=== PATIENT | female | born 1965 | race Caucasian/White ===

== ENCOUNTER → 2018-09-21 | Outpatient (CLI) | payer OTHER | LOC: GMAL 14:46 | PROVIDERS: ATTEND Family Medicine | DX: R53.83 Other fatigue (principal); E55.9 Vitamin D deficiency, unspecified ==

== ENCOUNTER → 2018-11-26 | Outpatient (CLI) | payer OTHER ==
--- NOTE | 2018-11-27 17:55 | MAM ---
EXAM DESCRIPTION: Screening Mammogram,Bilateral: Digital Mammography CLINICAL HISTORY: 52 years Female SCREENING . No complaints. No personal or family history of breast cancer. Childbirth. Postmenopausal. Currently on HRT.. Possible biopsy not sure which breast. ALEX risk evaluation assessment: Lifetime risk is: 11.4. COMPARISON: Baseline study at this facility. No prior reports available.. TECHNIQUE: Bilateral CC and MLO projection full-field images, digital tomosynthesis mammographic technique. Bilateral digital 2-D full-field MLO images. CAD not available for tomosynthesis or 2-D images. FINDINGS: The breast parenchymal density pattern is: Heterogeneously dense breast tissue, which may obscure small masses. No skin thickening or nipple retraction. Bilateral vascular calcifications. Bilateral solitary microcalcifications. Large coarse rim calcified calcification in the 12:00 position of the middle third of the left breast may be secondary to prior fat necrosis. Focal asymmetry at the 12:30 clock position of the middle third of the left breast, approximately 6 cm from the nipple. May be associated with architectural distortion. Round intramammary lymph node or cyst in the middle third of the superior right breast. Bilateral axillary lymph nodes.. No new focal, stellate mass or density, focal asymmetry , and no suspicious microcalcifications right breast. IMPRESSION: BI-RADS CATEGORY: 0 - INCOMPLETE- Need additional imaging evaluation. FOLLOW-UP: Recall for additional imaging: Orthogonal full-field tomosynthesis of the left breast. Targeted left breast ultrasound of the region of interest.. Written communication concerning the IMPRESSION and Follow-up, will be mailed to the patient and referring health care provider. Electronically signed by: Rivera Vicente MD 11/27/2018 5:53 PM LAUNDRY SUPERVISOR
== END ==
LOC: MAMMO 14:40
PROVIDERS: ATTEND Family Medicine
DX: Z12.31 Encounter for screening mammogram for malignant neoplasm of breast (principal)

== ENCOUNTER → 2018-11-29 | Outpatient (CLI) | payer OTHER ==
--- NOTE | 2018-11-30 07:57 | US ---
EXAM DESCRIPTION: Breast,Left: Ultrasound CLINICAL HISTORY: 52 yearsFemaleABNORMAL MAMMO. Patient has had bilateral facet injections in the breasts. Scheduled for mammoplasty next week. COMPARISON: Digital screening tomosynthesis bilateral breasts 11/26/2018. Patient did not have diagnostic mammography today. TECHNIQUE: Transcutaneous scanning of the left breast utilizing foster-scale and Doppler modes. Scanning performed by the lead rider and Dr. Vicente. FINDINGS: Scanning of the upper left breast. Mixed fibroglandular and fatty echotextures. A calcified mass with anterior echogenic circumscribed wall and marked posterior acoustic shadowing is seen at the 11:30 position of the left breast 6 cm from the nipple. Dimensions are 1.4 x 1.0 x 1.0.. Nonvascular and wider than tall orientation. This corresponds to a rim calcified benign type mass seen on the screening study. More anteriorly at the 11:30 position 2 cm from the nipple is a hypoechoic circumscribed nodule, taller than wide with posterior shadowing features. Nonvascular. Not associated with calcifications. 3.4 x 3.0 mm. At the 12:00 position 2 cm from the nipple is a circumscribed hypoechoic mass with wider than tall orientation and mixed posterior shadowing and enhancement features. Possibly rim vascularity. Dimensions are 1.0 x 0.8 x 0.5 cm. Possible posterior calcification. No cysts. No parenchymal edema. No overlying skin changes and no abnormal vascularity. These latter 2 findings are interpreted to be related to prior fatty projections. IMPRESSION: BI-RADS CATEGORY: 3 - PROBABLY BENIGN. Management: Short interval (6-month) follow-up, bilateral breasts, which can be performed following bilateral mammoplasty.. The FINDINGS and the FOLLOW-UP plan were reviewed in person with the patient after the examination. Written communication explaining the IMPRESSION and FOLLOW-UP will be mailed to the patient and referring care provider. Electronically signed by: Rivera Vicente MD 11/30/2018 7:56 AM DIRECTOR OF SAFETY AND SECURITY
--- NOTE | 2018-12-03 09:18 | MAM ---
EXAM DESCRIPTION: 3D Diagnostic, Left: Digital Mammography CLINICAL HISTORY: 52 yearsFemaleABNORMAL MAMMO previous fatty breast injections. Bilateral mammoplasty scheduled. Focal asymmetry left breast. COMPARISON: Bilateral screening digital breast tomosynthesis 11/26/2018. Targeted left breast ultrasound included with this examination.. TECHNIQUE: Left breast LM projection full-field images, digital mammographic tomosynthesis technique. CAD not utilized. FINDINGS: The breast parenchymal density pattern is: Heterogeneously dense breast tissue, which may obscure small masses. No skin thickening or nipple retraction large partially calcified benign-type nodule again seen upper breast with scattered calcifications. Region of focal asymmetry not as well-defined compared to the screening examination. Anterior circumscribed mass with rim calcifications retroareolar breast. Ultrasound: Scanning of the upper left breast. Mixed fibroglandular and fatty echotextures. A calcified mass with anterior echogenic circumscribed wall and marked posterior acoustic shadowing is seen at the 11:30 position of the left breast 6 cm from the nipple. Dimensions are 1.4 x 1.0 x 1.0.. Nonvascular and wider than tall orientation. This corresponds to a rim calcified benign type mass seen on the screening study. More anteriorly at the 11:30 position 2 cm from the nipple is a hypoechoic circumscribed nodule, taller than wide with posterior shadowing features. Nonvascular. Not associated with calcifications. 3.4 x 3.0 mm. At the 12:00 position 2 cm from the nipple is a circumscribed hypoechoic mass with wider than tall orientation and mixed posterior shadowing and enhancement features. Possibly rim vascularity. Dimensions are 1.0 x 0.8 x 0.5 cm. Possible posterior calcification. No cysts. No parenchymal edema. No overlying skin changes and no abnormal vascularity. These latter 2 findings are interpreted to be related to prior fatty projections. IMPRESSION: BI-RADS CATEGORY: 3 - PROBABLY BENIGN. Management: Short interval (6-month) follow-up, bilateral breasts, which can be performed following bilateral mammoplasty.. The FINDINGS and the FOLLOW-UP plan were reviewed in person with the patient after the examination. Written communication explaining the IMPRESSION and FOLLOW-UP will be mailed to the patient and referring care provider. Electronically signed by: Rivera Vicente MD 12/03/2018 9:17 AM ENGINEERING ILLUSTRATOR
== END ==
LOC: MAMMO 11:48
PROVIDERS: ATTEND Family Medicine
DX: R92.8 Other abnormal and inconclusive findings on diagnostic imaging of breast (principal)
CPT/HCPCS: 76641; 77065; G0279

== ENCOUNTER → 2019-07-10 | Outpatient (CLI) | payer OTHER ==
--- NOTE | 2019-07-11 11:57 | US ---
EXAM DESCRIPTION: Breast,Left (accession [id number]), Diagnostic Mammo,Left (accession [id number]): Ultrasound CLINICAL HISTORY: 53 yearsFemale6 MONTH FOLLOW UP . Malignant tissue found left breast after bilateral mammoplasty, November 2018. No pain left breast. Remote family history of ovarian and breast cancer. Childbirth. Postmenopausal. HRT less than 5 years ago. Lifetime risk of developing breast cancer (Tyrer-Cuzick model)(%): Not calculated due to personal history of breast cancer. COMPARISON: Bilateral screening digital breast tomosynthesis 11/26/2018. Diagnostic left breast tomosynthesis and ultrasound 11/29/2018. These exams were prior to bilateral mammoplasty. TECHNIQUE: Left breast LM, MLO, and CC projection full-field images, digital mammographic tomosynthesis technique. Left breast 2-D digital full-field images. LM projection only. CAD not available. . Transcutaneous scanning of the left breast utilizing foster-scale and Doppler modes. Scanning performed by the drilling supervisor and Dr. Vicente. FINDINGS: The breast parenchymal density pattern is: Heterogeneously dense breast tissue, which may obscure small masses. Nipple retraction and deformity anterior left breast. Large calcified nodule anterior third upper left breast superior to the nipple. Architectural distortion 6:30 position of the inferior anterior left breast 3 cm from the nipple. Architectural distortion 7:00 position lower inner quadrant left breast 5 cm from the nipple. Architectural distortion 3:00 lateral mid left breast 5 cm from the nipple. Also coarse calcification anterior left breast. Ultrasound: Scanning of the regions of interest in the lateral left breast in the lower inner quadrant anterior middle third left breast. Mostly fibroglandular tissues with minimal fatty echotexture. No dominant solid mass or distinct cyst. No large calcifications or parenchymal edema. Overlying skin shows minimal lobulation around the nipple. IMPRESSION: BI-RADS CATEGORY: 3 - PROBABLY BENIGN. Management: Short interval (6-month) follow-up diagnostic left breast tomosynthesis and targeted left breast ultrasound. The FINDINGS and the FOLLOW-UP plan were reviewed in person with the patient after the examination. Written communication explaining the IMPRESSION and FOLLOW-UP will be mailed to the patient and referring care provider. Electronically signed by: Rivera Vicente MD 07/11/2019 11:56 AM [employer]
== END ==
LOC: US 11:09
PROVIDERS: ATTEND Internal Medicine Hematology & Oncology
DX: C50.512 Malignant neoplasm of lower-outer quadrant of left female breast (principal)

== ENCOUNTER → 2020-03-16 | Outpatient (CLI) | payer OTHER ==
--- NOTE | 2020-03-16 08:39 | RAD ---
EXAM DESCRIPTION: Foot,Left 3 Views CLINICAL HISTORY: 54 years Female, PAIN IN LEFT FOOT COMPARISON: None. Findings: 3 views/radiographs Location: Left foot No acute fracture or dislocation. Joint spaces are maintained. Lisfranc alignment is maintained. Os peroneum. IMPRESSION: No evidence of acute process in the left foot. Electronically signed by: Antonino Lopez MD 03/16/2020 8:37 AM CDT
== END ==
LOC: RAD 07:51
PROVIDERS: ATTEND Orthopaedic Surgery
DX: M79.672 Pain in left foot (principal)

== ENCOUNTER → 2020-12-18 | Outpatient (CLI) | payer OTHER | LOC: GMAL 11:42 | PROVIDERS: ATTEND Family Medicine | DX: N30.00 Acute cystitis without hematuria (principal) ==

== ENCOUNTER → 2020-12-30 | Outpatient (CLI) | payer OTHER | LOC: GMAL 14:11 | PROVIDERS: ATTEND Family Medicine | DX: C50.912 Malignant neoplasm of unspecified site of left female breast (principal) ==